=== PATIENT | female | born 1960 | race Caucasian/White ===

== ENCOUNTER 2017-05-21 08:20 | Emergency (ER) | payer BC ==
--- NOTE | 2017-05-21 08:42 | ED ---
General Adult HPI - General Chief complaint: Head Injury Stated complaint: Fell/head injury Time Seen by Provider: 05/21/17 08:36 Source: patient, RN notes reviewed Mode of arrival: ambulatory Limitations: no limitations - History of Present Illness Initial comments: 56-year-old male presents to the emergency Department chief complaint of minor headache. Patient states 2 weeks ago she fell backwards and she hit her head. Patient states it was in the back of her head. Patient states she has not lost consciousness or not. Patient states in general is on and off had pressure sometimes she'll have a little bit of abnormal vision and then it will just go away. Patient states she's had it on and off. Patient states she went to her doctor yesterday and he wanted a CAT scan but they were unable to schedule it slightly told her to go to the ER. Patient states that is why she is here today. Patient states her symptoms aren't getting any worse. Patient denies any numbness tingling or weakness with this. Patient states that she is not currently having any other problems. Patient denies any recent fever, chills, shortness of breath, chest pain, back pain, abdominal pain, nausea vomiting, numbness or tingling, dysuria or hematuria, constipation or diarrhea, or any other current symptoms. - Related Data Home Medications Medication Instructions Recorded Confirmed No Known Home Medications [No 05/21/17 05/21/17 Known Home Medications] Allergies Allergy/AdvReac Type Severity Reaction Status Date / Time minocycline Allergy Swelling Verified 05/21/17 08:55 Review of Systems ROS Statement: Those systems with pertinent positive or pertinent negative responses have been documented in the HPI. ROS Other: All systems not noted in ROS Statement are negative. Past Medical History Past Medical History: No Reported History History of Any Multi-Drug Resistant Organisms: None Reported Past Surgical History: Hysterectomy, Tonsillectomy Past Psychological History: No Psychological Hx Reported Smoking Status: Never smoker Past Alcohol Use History: Occasional Past Drug Use History: None Reported General Exam Limitations: no limitations General appearance: alert, in no apparent distress Head exam: Present: atraumatic, normocephalic, normal inspection Eye exam: Present: normal appearance, PERRL, EOMI. Absent: scleral icterus, conjunctival injection, periorbital swelling ENT exam: Present: normal exam, mucous membranes moist Neck exam: Present: normal inspection. Absent: tenderness, meningismus, lymphadenopathy Respiratory exam: Present: normal lung sounds bilaterally. Absent: respiratory distress, wheezes, rales, rhonchi, stridor Cardiovascular Exam: Present: regular rate, normal rhythm, normal heart sounds. Absent: systolic murmur, diastolic murmur, rubs, gallop, clicks Extremities exam: Present: normal inspection, full ROM, normal capillary refill. Absent: tenderness, pedal edema, joint swelling, calf tenderness Back exam: Present: normal inspection Neurological exam: Present: alert, oriented X3, CN II-XII intact, reflexes normal. Absent: motor sensory deficit Psychiatric exam: Present: normal affect, normal mood Skin exam: Present: warm, dry, intact, normal color. Absent: rash Course Vital Signs 05/21/17 08:31 Temperature 99.2 F Pulse Rate 84 Respiratory 18 Rate Blood Pressure 121/85 O2 Sat by Pulse 95 Oximetry Medical Decision Making - Medical Decision Making 56-year-old female presents with head injury. This time patient went to CAT scan does not show an acute process. This time we discussed patient is most likely suffering from a concussion. We discussed care follow-up return parameters and all questions. She stated that she understood and she is in agreement with this plan. This time patient will be discharged home. - Radiology Data Radiology results: report reviewed, image reviewed Disposition Clinical Impression: Concussion Disposition: HOME SELF-CARE Condition: Stable Instructions: Concussion (ED) Additional Instructions: Please use medication as discussed. Please follow up with family doctor if symptoms have not improved over the next two days. Please return to the emergency room if your symptoms increase or worsen or for any other concerns. Referrals: Janine Logan III, MD [Primary Care Provider] - 1-2 days Time of Disposition: 09:14
--- NOTE | 2017-05-21 09:08 | CT ---
EXAMINATION TYPE: CT brain wo con DATE OF EXAM: 05/21/2017 COMPARISON: 03/16/2011 HISTORY: Fall/head injury [address] DLP: 1047.10 mGycm Automated exposure control for dose reduction was used. FINDINGS: Ventricles of normal size. There is no mass effect nor midline shift. There is no sign of intracrania l hemorrhage. Calvarium is intact. There is incomplete pneumatization of the right mastoid air cells. IMPRESSION: NEGATIVE CT SCAN OF THE BRAIN. NO CHANGE COMPARED TO MR SCAN OF 03/16/2011.
[2017-05-21 09:22] VITALS: BP 115/66; PULSE 79; RESP 14; TEMP 98.8
== END 2017-05-21 09:39 | disposition home or self-care (01) ==
LOC: EC 08:20
DX: S06.0X0A Concussion without loss of consciousness, initial encounter (principal); Z88.1 Allergy status to other antibiotic agents; W08.XXXA Fall from other furniture, initial encounter; W22.09XA Striking against other stationary object, initial encounter
CPT/HCPCS: 70450; 99283

== ENCOUNTER → 2018-05-01 | Outpatient (CLI) | payer BC ==
--- NOTE | 2018-05-01 08:02 | US ---
EXAMINATION TYPE: US abdomen complete DATE OF EXAM: 05/01/2018 COMPARISON: NONE CLINICAL HISTORY: R10.11 right upper quadrant pain. Pt states on going RUQ pain EXAM MEASUREMENTS: Liver Length: 13.3 cm Gallbladder Wall: 0.2 cm CBD: 0.4 cm Spleen: 9.3 cm Right Kidney: 9.8 x 4.0 x 4.7 cm Left Kidney: 9.5 x 5.3 x 4.9 cm Pancreas: wnl, tail obscured by overlying bowel gas Liver: Heterogeneous, otherwise appeared wnl Gallbladder: wnl Evidence for sonographic Moody's sign: No CBD: wnl Spleen: wnl Right Kidney: wnl Left Kidney: wnl Upper IVC: wnl Abd Aorta: wnl No abnormality visualized to account for pt's symptoms The visualized liver is slightly heterogeneous. The intrahepatic portion of the IVC and proximal abd ominal aorta are within normal limits. There is no evidence of cholelithiasis. Common bile duct is unremarkable. The visualized portions of the pancreas are homogenous. The spleen is unremarkable. Kidneys are symmetric and free of hydronephrosis. No renal lesions are seen. IMPRESSION: No suspicious finding is seen to account for patient's symptoms.
== END | disposition home or self-care (01) ==
LOC: RADUSWWP 07:22
PROVIDERS: ATTEND Family Medicine
DX: R10.11 Right upper quadrant pain (principal)
CPT/HCPCS: 76700

== ENCOUNTER → 2018-05-07 | Outpatient (CLI) | payer BC ==
--- NOTE | 2018-05-07 17:37 | NM ---
EXAMINATION TYPE: NM hepatobiliary w EF DATE OF EXAM: 05/07/2018 COMPARISON: NONE HISTORY: Abdominal pain TECHNIQUE: After the intravenous administration of 5 mCi Tc 99m Mebrofenin hepatobiliary scintigraphy is performed. Immediate images post injection. FINDINGS: There is satisfactory initial accumulation of tracer by the liver. The gallbladder is visualized wit hin 10 minutes. The small bowel activity is noted within 45 minutes. At one hour 8 ounces of oral e nsure plus is given to mimic CCK and gallbladder ejection fraction is calculated at 91 %, in the norm al range. Therefore there is no scintigraphic evidence of cystic or common bile duct obstruction to suggest acute cholecystitis or gallbladder dyskinesia. IMPRESSION: Exam is within normal limits.
== END | disposition home or self-care (01) ==
LOC: RADNMMAIN 14:48
PROVIDERS: ATTEND Family Medicine
DX: R10.11 Right upper quadrant pain (principal)
CPT/HCPCS: 78226; A9537

== ENCOUNTER → 2022-03-13 | Outpatient (CLI) | payer OTHER ==
--- NOTE | 2022-03-14 12:35 | MM ---
Reason for exam: screening (asymptomatic). Last mammogram was performed 4 years and 11 months ago. History: Benign right mammotome panel of the right breast, July 29, 2006. Took hormonal contraceptives for 1 year beginning at age 18. Physical Findings: A clinical breast exam by your physician is recommended on an annual basis and results should be correlated with mammographic findings. MG 3D Screening Mammo W/Cad Bilateral CC and MLO view(s) were taken. Prior study comparison: April 03, 2017, mammogram, performed at [facility]. April 26, 2015, mammogram, performed at [facility]. March 16, 2013, mammogram, performed at [facility]. The breast tissue is heterogeneously dense. This may lower the sensitivity of mammography. No significant changes when compared with prior studies. ASSESSMENT: Benign, BI-RAD 2 RECOMMENDATION: Routine screening mammogram of both breasts in 1 year.
== END | disposition home or self-care (01) ==
LOC: RADMAMWWP 07:43
PROVIDERS: ATTEND Family Medicine
DX: Z12.31 Encounter for screening mammogram for malignant neoplasm of breast (principal)
CPT/HCPCS: 77063; 77067

== ENCOUNTER 2023-03-04 09:44 | Observation (INO) | payer OTHER ==
[2023-03-04] MEDS ORDERED: NITROGLYCERIN OINT 1 INCH/GM PACKET TOPICAL STA (11:09)
[2023-03-04] MEDS ORDERED: ASPIRIN 81 MG PO STA (11:09)
--- NOTE | 2023-03-04 11:11 | ED ---
General Adult HPI - General Chief complaint: Chest Pain Stated complaint: chest pain, lt side numbness Time Seen by Provider: 03/04/23 10:35 Source: patient, RN notes reviewed Mode of arrival: ambulatory Limitations: no limitations - History of Present Illness Initial comments: Patient is a pleasant 62-year-old female presenting to the emergency department with concerns with chest discomfort. Onset of symptoms was a couple of days ago. Patient also has some associated nausea and paresthesias of the left arm. Also some mild paresthesia left upper leg. Patient does admit to having some increased stress recently. No dyspnea. No diaphoresis. No history of similar symptoms previously. Discomfort is described as pressure and rated 3/10. No ra diation. - Related Data Home Medications Medication Instructions Recorded Confirmed No Known Home Medications 05/21/17 05/21/17 Allergies Allergy/AdvReac Type Severity Reaction Status Date / Time minocycline Allergy Swelling Verified 05/21/17 08:55 tetracycline Allergy Anaphylaxis Verified 03/04/23 09:54 Review of Systems ROS Statement: Those systems with pertinent positive or pertinent negative responses have been documented in the HPI. ROS Other: All systems not noted in ROS Statement are negative. Constitutional: Denies: fever Eyes: Denies: eye pain ENT: Denies: ear pain Respiratory: Denies: cough, dyspnea Cardiovascular: Reports: as per HPI, chest pain Endocrine: Denies: fatigue Gastrointestinal: Reports: nausea. Denies: vomiting Genitourinary: Denies: dysuria Musculoskeletal: Denies: back pain Skin: Denies: rash Neurological: Reports: as per HPI. Denies: headache, weakness, confusion Past Medical History Past Medical History: No Reported History History of Any Multi-Drug Resistant Organisms: None Reported Past Surgical History: Hysterectomy, Tonsillectomy Past Psychological History: No Psychological Hx Reported Smoking Status: Never smoker Past Alcohol Use History: Occasional Past Drug Use History: None Reported General Exam Limitations: no limitations General appearance: alert, in no apparent distress Head exam: Present: atraumatic, normocephalic Eye exam: Present: normal appearance, PERRL, EOMI ENT exam: Present: normal oropharynx Neck exam: Present: normal inspection Respiratory exam: Present: normal lung sounds bilaterally Cardiovascular Exam: Present: regular rate, normal rhythm Expanded Peripheral pulses: 2+: Radial (R), Radial (L), Dorsalis Pedis (R), Dorsalis Pedis (L) GI/Abdominal exam: Present: soft. Absent: tenderness Extremities exam: Present: normal inspection. Absent: pedal edema, calf tenderness Neurological exam: Present: alert Psychiatric exam: Present: normal affect, normal mood Skin exam: Present: normal color Course Vital Signs 03/04/23 09:52 Temperature 97.9 F Pulse Rate 82 Respiratory 20 Rate Blood Pressure 174/91 O2 Sat by Pulse 99 Oximetry EKG Findings - EKG Results: EKG: interpreted by ERMD, sinus rhythm, normal axis, normal QRS, normal ST/T Medical Decision Making - Medical Decision Making Was pt. sent in by a medical professional or institution (, PA, PRODUCTION MANAGER, urgent care, hospital, or usp...) When possible be specific @ -No Did you speak to anyone other than the patient for history (EMS, parent, family, police, friend...)? What history was obtained from this source @ -No Did you review nursing and triage notes (agree or disagree)? Why? @ -I reviewed and agree with nursing and triage notes Were old charts reviewed (outside hosp., previous admission, EMS record, old EKG, old radiological studies, urgent care reports/EKG's, usp records)? Report findings @ -No old charts were reviewed Differential Diagnosis (chest pain, altered mental status, abdominal pain women, abdominal pain men, vaginal bleeding, weakness, fever, dyspnea, syncope, headache, dizziness, GI bleed, back pain, seizure, CVA, palpatations, mental health)? @ -Differential Chest Pain: Stable Angina, Unstable Angina, STEMI, NSTEMI Aortic Dissection, Pneumothorax, Musculoskeletal, Esophageal Spasm GERD, Cholecystitis, Pancreatitis, Zoster, this is not meant to be an all-inclusive list. EKG interpreted by me (3pts min.). @ -As above X-rays interpreted by me (1pt min.). @ -Chest x-ray shows no acute process CT interpreted by me (1pt min.). @ -None done U/S interpreted by me (1pt. min.). @ -None done What testing was considered but not performed or refused? (CT, X-rays, U/S, la bs)? Why? @ -None What meds were considered but not given or refused? Why? @ -None Did you discuss the management of the patient with other professionals (professionals i.e. , PA, PRODUCTION MANAGER, lab, RT, psych nurse, social work nurse, otr flatbed company truck driver, teacher, security control room officer, rifle case repairer)? Give summary @ -Case was discussed with Dr. Amin, who will admit coming hospital call Was smoking cessation discussed for >3mins.? @ -No Was critical care preformed (if so, how long)? @ -No Were there social determinants of health that impacted care today? How? (Homelessness, low income, unemployed, alcoholism, drug addiction, trans portation, low edu. Level, literacy, decrease access to med. care, intermediate, rehab)? @ -No Was there de-escalation of care discussed even if they declined (Discuss DNR or withdrawal of care, Hospice)? DNR status @ -No What co-morbidities impacted this encounter? (DM, HTN, Smoking, COPD, CAD, Cancer, CVA, ARF, Chemo, Hep., AIDS, mental health diagnosis, sleep apnea, morbid obesity)? @ -None Was patient admitted / discharged? Hospital course, mention meds given and route, prescriptions, significant lab abnormalities, going to OR and other pertinent info. @ -Patient reevaluated and resting comfortably in bed. Patient is updated on results and plan. Patient will be admitted for further cardiac evaluation Undiagnosed new problem with uncertain prognosis? @ -No Drug Therapy requiring intensive monitoring for toxicity (Heparin, Nitro, Insulin, Cardizem)? @ -No Were any procedures done? @ -No Diagnosis/symptom? @ -Chest pain Acute, or Chronic, or Acute on Chronic? @ -Acute Uncomplicated (without systemic symptoms) or Complicated (systemic symptoms)? @ -default Side effects of treatment? @ -No Exacerbation, Progression, or Severe Exacerbation? @ -No Poses a threat to life or bodily function? How? (Chest pain, [place], [place], pneumonia, PE, COPD, DKA, ARF, appy, cholecystitis, CVA, Diverticulitis, Homicidal, Suicidal, threat to staff... and all critical care pts) @ -No - Lab Data Result diagrams: 03/04/23 10:52 03/04/23 10:52 Lab Results 03/04/23 03/04/23 03/04/23 Range/Units 10:52 10:52 10:52 WBC 6.0 (3.8-10.6) k/uL RBC 4.52 (3.80-5.40) m/uL Hgb 14.0 (11.4-16.0) gm/dL Hct 39.4 (34.0-46.0) % MCV 87.2 (80.0-100.0) fL MCH 30.9 (25.0-35.0) pg MCHC 35.5 (31.0-37.0) g/dL RDW 13.4 (11.5-15.5) % Plt Count 231 (150-450) k/uL MPV 7.9 Neutrophils % 67 % Lymphocytes % 25 % Monocytes % 4 % Eosinophils % 2 % Basophils % 1 % Neutrophils # 4.1 (1.3-7.7) k/uL Lymphocytes # 1.5 (1.0-4.8) k/uL Monocytes # 0.2 (0-1.0) k/uL Eosinophils # 0.1 (0-0.7) k/uL Basophils # 0.0 (0-0.2) k/uL PT (9.0-12.0) sec INR (<1.2) APTT (22.0-30.0) sec Sodium 138 (137-145) mmol/L Potassium 4.6 (3.5-5.1) mmol/L Chloride 106 (98-107) mmol/L Carbon Dioxide 24 (22-30) mmol/L Anion Gap 8 mmol/L BUN 12 (7-17) mg/dL Creatinine 0.51 L (0.52-1.04) mg/dL Est GFR (CKD-EPI)AfAm >90 (>60 ml/min/1.73 sqM) Est GFR (CKD-EPI)NonAf >90 (>60 ml/min/1.73 sqM) Glucose 99 (74-99) mg/dL Calcium 9.4 (8.4-10.2) mg/dL Magnesium 2.3 (1.6-2.3) mg/dL Total Bilirubin 0.6 (0.2-1.3) mg/dL AST 37 H (14-36) U/L ALT 31 (4-34) U/L Alkaline Phosphatase 79 (38-126) U/L Troponin I 0.021 (0.000-0.034) ng/mL Total Protein 7.9 (6.3-8.2) g/dL Albumin 4.6 (3.5-5.0) g/dL 03/04/23 Range/Units 11:17 WBC (3.8-10.6) k/uL RBC (3.80-5.40) m/uL Hgb (11.4-16.0) gm/dL Hct (34.0-46.0) % MCV (80.0-100.0) fL MCH (25.0-35.0) pg MCHC (31.0-37.0) g/dL RDW (11.5-15.5) % Plt Count (150-450) k/uL MPV Neutrophils % % Lymphocytes % % Monocytes % % Eosinophils % % Basophils % % Neutrophils # (1.3-7.7) k/uL Lymphocytes # (1.0-4.8) k/uL Monocytes # (0-1.0) k/uL Eosinophils # (0-0.7) k/uL Basophils # (0-0.2) k/uL PT 9.8 (9.0-12.0) sec INR 0.9 (<1.2) APTT 21.8 L (22.0-30.0) sec Sodium (137-145) mmol/L Potassium (3.5-5.1) mmol/L Chloride (98-107) mmol/L Carbon Dioxide (22-30) mmol/L Anion Gap mmol/L BUN (7-17) mg/dL Creatinine (0.52-1.04) mg/dL Est GFR (CKD-EPI)AfAm (>60 ml/min/1.73 sqM) Est GFR (CKD-EPI)NonAf (>60 ml/min/1.73 sqM) Glucose (74-99) mg/dL Calcium (8.4-10.2) mg/dL Magnesium (1.6-2.3) mg/dL Total Bilirubin (0.2-1.3) mg/dL AST (14-36) U/L ALT (4-34) U/L Alkaline Phosphatase (38-126) U/L Troponin I (0.000-0.034) ng/mL Total Protein (6.3-8.2) g/dL Albumin (3.5-5.0) g/dL Disposition Clinical Impression: Chest pain Disposition: ADMITTED IP TO THIS HOSP Is patient prescribed a controlled substance at d/c from ED?: No Referrals: None,Stated [Primary Care Provider] - 1-2 days Time of Disposition: 12:24
[2023-03-04 11:17] LABS: Basophils % (A) 1 %; Eosinophils # (A) 0.1 k/uL (0-0.7); Eosinophils % (A) 2 %; HCT 39.4 % (34.0-46.0); Lymphocytes # (A) 1.5 k/uL (1.0-4.8); Lymphocytes % (A) 25 %; MCH 30.9 pg (25.0-35.0); MCHC 35.5 g/dL (31.0-37.0); MCV 87.2 fL (80.0-100.0); Mean Platelet Volume 7.9; Monocytes # (A) 0.2 k/uL (0-1.0); Monocytes % (A) 4 %; Neutrophils # (A) 4.1 k/uL (1.3-7.7); Neutrophils % (A) 67 %; Platelet Count 231 k/uL (150-450); RBC 4.52 m/uL (3.80-5.40); RDW 13.4 % (11.5-15.5)
--- NOTE | 2023-03-04 11:29 | XR ---
EXAMINATION TYPE: XR chest 2V DATE OF EXAM: 03/04/2023 COMPARISON: NONE HISTORY: Shortness of breath TECHNIQUE: Frontal and lateral views of the chest are obtained. FINDINGS: Scattered senescent parenchymal changes noted. Hyperinflation compatible with COPD. No evidence for infiltrate. No evidence for atelectasis. Heart size is stable. Mediastinal structures are stable and grossly unremarkable. No evidence for hilar prominence. Degenerative changes dorsal spine. IMPRESSION: 1. No evidence for acute pulmonary disease.
[2023-03-04 11:39] LABS: ALT 31 U/L (4-34); African American GFR (CKD) >90 (>60 ml/min/1.73 sqM); Albumin 4.6 g/dL (3.5-5.0); Anion Gap 8 mmol/L; Blood Urea Nitrogen 12 mg/dL (7-17); Calcium 9.4 mg/dL (8.4-10.2); Carbon Dioxide 24 mmol/L (22-30); Chloride 106 mmol/L (98-107); Glucose 99 mg/dL (74-99); Non-African American GFR(CKD) >90 (>60 ml/min/1.73 sqM); Sodium 138 mmol/L (137-145); Total Bilirubin 0.6 mg/dL (0.2-1.3); Total Protein 7.9 g/dL (6.3-8.2)
[2023-03-04 11:47] LABS: INR 0.9 (<1.2); Partial Thromboplastin Time 21.8 sec (22.0-30.0); Prothrombin Time 9.8 sec (9.0-12.0)
[2023-03-04 11:59] LABS: AST 37 U/L (14-36); Alkaline Phosphatase 79 U/L (38-126); Magnesium 2.3 mg/dL (1.6-2.3); Potassium 4.6 mmol/L (3.5-5.1)
[2023-03-04] MEDS ORDERED: NITROGLYCERIN SL TABS 0.4 MG TAB SUBLINGUAL PRN (12:24)
[2023-03-04] MEDS: NITROGLYCERIN OINT 1 INCH/GM PACKET TOPICAL SCH (19:36)
[2023-03-05] MEDS: NITROGLYCERIN OINT 1 INCH/GM PACKET TOPICAL SCH ×2 (00:59→05:32)
[2023-03-05 08:08] VITALS: RESP 16
[2023-03-05] MEDS ORDERED: ASPIRIN 325 MG TAB PO SCH (09:00)
--- NOTE | 2023-03-05 11:18 | P.CRDCN ---
History of Present Illness Consult date: 03/05/23 Consult reason: chest pain History of present illness: History of present illness: This is a 62-year-old female with no previous cardiac history, and no previous cardiac testing, does not follow with a ammunition specialist. Patient has no significant past medical history. We have been asked to evaluate the patient for chest pain. Patient states that she has had left arm numbness for the last couple of days and then developed left leg tingling. Yesterday she was having chest pressure developed yesterday while she was working on a computer. She works from home. She also developed nausea and felt that this was related to stress. She is usually very active and exercises at the gym every day. She has no history of smoking, she drinks alcohol occasionally. No illicit drug use. And she denies any family history of heart disease. EKG normal sinus rhythm with no acute ST changes Chest x-ray: No acute findings CBC within normal limits. D-dimer 0.51. Electrolytes normal. BUN 12 and creatinine 0.51. Troponins negative 3. AST 37 otherwise liver function tests are normal. Magnesium 2.3. Home cardiac medications: None Review Of Systems: At the time of my evaluation: Constitutional: No fever, no chills. No weakness, fatigue or lethargy. EENT: No headache. No dizziness. Lungs: No shortness of breath, cough, no sputum production. No wheezing. Cardiovascular: No chest pain, no lower extremity edema. No palpitations. No paroxysmal nocturnal dyspnea. No orthopnea. No lightheadedness or dizziness. No syncopal episodes. Abdominal: No abdominal pain. No nausea, vomiting. No diarrhea. No constipation. No bloody or tarry stools. Genitourinary: No dysuria.. No urinary retention. Musculoskeletal: No myalgias. No muscle weakness, no frequent falls. No back pain. No neck pain. Integumentary: No wounds. No rash. No unusual bruising. Neurologic: No aphasia. No facial droop. No change in mentation. No head injury. No headache. Physical examination: Gen: This is a thin 62-year-old female. She is in no acute distress VS: reviewed HEENT: Head is atraumatic, normocephalic. Pupils equal, round. Sclerae is anicteric. NECK: Supple. No JVD. . LUNGS: Clear to auscultation. No wheezes or rhonchi. No intercostal retractions. HEART: Regular rate and rhythm. No murmur. ABDOMEN: Soft No tenderness. EXTREMITIES: No pedal edema. No calf tenderness. NEUROLOGICAL: Patient is awake, alert and oriented x3. Assessment: Chest pain, acute coronary syndrome ruled out Plan: Obtain stress echo cardiogram Obtain 2-D echocardiogram and Doppler study to assess cardiac structure and function If stress echocardiogram and echocardiogram are unremarkable, patient is cleared for discharge home from cardiology. Thank you kindly for this consultation. Nurse practitioner note has been reviewed, I agree with documented findings and plan of care. Patient was seen and examined. Past Medical History Past Medical History: No Reported History History of Any Multi-Drug Resistant Organisms: None Reported Past Surgical History: Hysterectomy, Tonsillectomy Past Psychological History: No Psychological Hx Reported Smoking Status: Never smoker Past Alcohol Use History: Occasional Past Drug Use History: None Reported Medications and Allergies Home Medications Medication Instructions Recorded Confirmed Type No Known Home Medications 05/21/17 03/04/23 History Allergies Allergy/AdvReac Type Severity Reaction Status Date / Time minocycline Allergy Swelling Verified 03/04/23 12:15 tetracycline Allergy Anaphylaxis Verified 03/04/23 12:15 Physical Exam Vitals: Vital Signs Temp Pulse Pulse Resp BP BP Pulse Ox 03/05/23 01:33 97.7 F 80 18 121/83 99 03/04/23 20:00 76 15 03/04/23 19:24 97.0 F L 97 20 144/90 96 03/04/23 18:34 98.2 F 76 15 133/82 98 03/04/23 18:00 89 16 114/68 97 03/04/23 17:00 88 18 132/85 97 03/04/23 16:00 101 H 16 130/79 96 03/04/23 15:00 72 17 126/85 96 03/04/23 14:30 72 16 132/82 97 03/04/23 13:30 68 15 148/97 96 03/04/23 13:00 80 15 155/102 96 03/04/23 12:30 76 15 154/100 97 03/04/23 12:00 77 18 160/89 99 03/04/23 11:30 76 22 154/94 99 03/04/23 11:00 71 18 166/91 99 03/04/23 09:52 97.9 F 82 20 174/91 99 Intake and Output 03/04/23 03/05/23 03/05/23 22:59 06:59 14:59 Intake Total 450 Balance 450 Intake: Oral 450 Other: # Voids 1 2 Weight 63.503 kg Results 03/04/23 10:52 03/04/23 10:52 Cardiac Enzymes 03/04/23 03/04/23 03/04/23 Range/Units 10:52 10:52 13:10 AST 37 H (14-36) U/L Troponin I 0.021 <0.012 (0.000-0.034) ng/mL 03/04/23 Range/Units 15:35 AST (14-36) U/L Troponin I <0.012 (0.000-0.034) ng/mL Coagulation 03/04/23 Range/Units 11:17 PT 9.8 (9.0-12.0) sec APTT 21.8 L (22.0-30.0) sec CBC 03/04/23 Range/Units 10:52 WBC 6.0 (3.8-10.6) k/uL RBC 4.52 (3.80-5.40) m/uL Hgb 14.0 (11.4-16.0) gm/dL Hct 39.4 (34.0-46.0) % Plt Count 231 (150-450) k/uL Comprehensive Metabolic Panel 03/04/23 Range/Units 10:52 Sodium 138 (137-145) mmol/L Potassium 4.6 (3.5-5.1) mmol/L Chloride 106 (98-107) mmol/L Carbon Dioxide 24 (22-30) mmol/L BUN 12 (7-17) mg/dL Creatinine 0.51 L (0.52-1.04) mg/dL Glucose 99 (74-99) mg/dL Calcium 9.4 (8.4-10.2) mg/dL AST 37 H (14-36) U/L ALT 31 (4-34) U/L Alkaline Phosphatase 79 (38-126) U/L Total Protein 7.9 (6.3-8.2) g/dL Albumin 4.6 (3.5-5.0) g/dL Current Medications Generic Name Dose Route Start Last Admin Trade Name Freq PRN Reason Stop Dose Admin Aspirin 325 mg 03/05/23 09:00 Aspirin 325 Mg Tab PO DAILY BLACK Nitroglycerin 0.4 mg 03/04/23 12:24 Nitroglycerin Sl Tabs 0.4 Mg Tab SUBLINGUAL Q5M PRN Chest Pain Nitroglycerin 1 inch 03/04/23 18:00 03/05/23 05:32 Nitroglycerin Oint 1 Inch/Gm Packet TOPICAL Not Given Q6HR BLACK Intake and Output 03/04/23 03/05/23 03/05/23 22:59 06:59 14:59 Intake Total 450 Balance 450 Intake: Oral 450 Other: # Voids 1 2 Weight 63.503 kg 03/04/23 10:52 03/04/23 10:52
--- NOTE | 2023-03-05 11:54 | CA ---
Stress Echo Report Ludy Rojas Age: 62 Gender: F : 1960 Exam Date: 03/05/2023 11:00 Exam Location: [place] [facility] Ht (in): 65 Wt (lb): 140 Ordering Physician: Ashlyn Rodriguez Referring Physician: Jennifer SCOTT [employer] Certified Internetwork Expert: Angelita Rowland RDCS Technologist Procedure CPT: Indication: CP ICD-9 Codes: Rhythm: Patient History: Atypical angina, Hypertension Cardiac Medications: Medications in past 24 hours: Contrast: Stress Results Protocol: Zach Total dose(mL): Exercise Duration (min:sec): 7:[address] Depression (mm): Angina Score: Aguila Score: METS: 8.5 Resting HR: 102 Resting BP: 147 / 81 Peak HR: 156 Peak BP: 161 / 83 Max Predicted HR: 157 99 % Max Predicted HR Target HR: 133 Double Product: 29593 Stress Summary: The patient's target heart rate was achieved BP Response: Normal Reason for Termination: Reached target heart rate or work-load Cardiac Symptoms: Test terminated after reaching target heart rate (85% max predicted) ECG Analysis Resting ECG: Normal sinus rhythm normal lites normal intervals Stress ECG: No ST segment depression patient exercised for 7 minutes on Zach protocol achieving 8 met Arrhythmia: Echo Analysis Resting Echo: Normal left ventricular size wall motion systolic function Peak Echo Analysis: Normal hyperdynamic response of all the myocardium noted MEASUREMENTS (Male/Female) Normal Values CONCLUSIONS Average exercise tolerance Negative stress test by EKG criteria Negative stress echo Dr. Fox Martinez MD (Electronically Signed) Final Date: 05 March 2023 11:53
--- NOTE | 2023-03-05 12:14 | CA ---
Transthoracic Echo Report Name: Ludy Rojas Age: 62 Gender: F : 1960 Exam Date: 03/05/2023 09:05 Exam Location: [place] [facility] Ht (in): 65 Wt (lb): 140 Ordering Physician: Ashlyn Rodriguez Attending/Referring Phys: [id number], Jennifer Health And Safety Director Angelita Rowland RDCS Procedure CPT: Indications: LVF Cardiac Hx: Hypertension. Technical Quality: Fair Contrast 1: Total Dose (mL): Contrast 2: Total Dose (mL): MEASUREMENTS (Male / Female) Normal Values 2D ECHO LV Diastolic Diameter PLAX 3.9 cm 4.2 - 5.9 / 3.9 - 5.3 cm LV Systolic Diameter PLAX 2.4 cm IVS Diastolic Thickness 0.9 cm 0.6 - 1.0 / 0.6 - 0.9 cm LVPW Diastolic Thickness 1.0 cm 0.6 - 1.0 / 0.6 - 0.9 cm LV Relative Wall Thickness 0.5 RV Internal Dim ED PLAX 2.5 cm LA Volume 47.5 cm??? 18 - 58 / 22 - 52 cm??? M-MODE Aortic Root Diameter MM 2.4 cm LA Systolic Diameter MM 2.8 cm LA Ao Ratio MM 1.1 DOPPLER AV Peak Velocity 122.5 cm/s AV Peak Gradient 6.0 mmHg AV Mean Velocity 87.7 cm/s AV Mean Gradient 3.3 mmHg AV Velocity Time Integral 26.4 cm LVOT Peak Velocity 106.4 cm/s LVOT Peak Gradient 4.5 mmHg MV Area PHT 3.7 cm??? Mitral E Point Velocity 57.6 cm/s Mitral A Point Velocity 76.8 cm/s Mitral E to A Ratio 0.7 MV Deceleration Time 204.2 ms MV E' Velocity 6.1 cm/s Mitral E to MV E' Ratio 9.5 TR Peak Velocity 214.9 cm/s TR Peak Gradient 18.5 mmHg Right Ventricular Systolic Press 23.5 mmHg FINDINGS Left Ventricle Normal left ventricular size, wall thickness, systolic function with no obvious regional wall motion abnormalities. Normal left ventricular diastolic filling pattern for age. The ejection fraction is visually estimated at 55-60 %. Right Ventricle The right ventricle is normal in size and function. Right ventricular systolic pressure within normal limits. Right Atrium The right atrium is normal in size. Left Atrium The left atrium is normal in size. Mitral Valve Structurally normal mitral valve without significant stenosis or prolapse. There is trace mitral regurgitation. Aortic Valve Structurally normal aortic valve without significant sclerosis or stenosis. There is no aortic regurgitation. Tricuspid Valve Structurally normal tricuspid valve without significant stenosis. Pulmonary artery systolic pressure is normal. Mild tricuspid regurgitation. Pulmonic Valve Structurally normal pulmonic valve without significant stenosis. There is no pulmonic regurgitation. Pericardium Normal pericardium without effusion. Aorta Normal aortic root dimension. CONCLUSIONS Normal LV systolic function Previewed by: Dr. Fox Martinez MD (Electronically Signed) Final Date: 05 March 2023 12:13
[2023-03-05 14:05] VITALS: BP 136/82; PULSE 88; TEMP 98
--- NOTE | 2023-03-05 15:01 | HP ---
HISTORY AND PHYSICAL HISTORY OF PRESENT ILLNESS: A 62-year-old white female came to emergency room with chest discomfort, a couple of days ago, associated with nausea upper neck. She says she was up cleaning the garage. She thought her pain was relating to cleaning out her garage and her barn. She has had no similar symptoms. Pressure 3/10, nonradiating. . She has a lot of stressors in her life she says. ALLERGIES: Negative. PAST MEDICAL HISTORY: Negative. PAST SURGICAL HISTORY: Hysterectomy and tonsillectomy. REVIEW OF SYSTEMS: A 14-point review of systems is negative except for as mentioned in HPI. PHYSICAL EXAMINATION: CARDIOVASCULAR: S1 and S2. LUNGS: Clear. GI: Soft. HEMATOLOGY: Negative Homans. PSYCHIATRIC: Fair mood and affect. NEUROLOGIC: Alert and oriented x3. MUSCULOSKELETAL: Nontender cervical spine. VITAL SIGNS: Temperature 97.9, pulse 82, respiratory rate 18 to 20, blood pressure 170s/90s. EKG, sinus rhythm. Atypical chest pain. Negative CPKs, MBs, and troponins x3. D- dimer is negative. Chest x-ray is negative. Suspect she has some anxiety-related chest pain or pain related to her breathing . We will clear her for discharge once Cardiology clears her in the morning. MMODL / IJN: [id number] /
[2023-03-05 16:36] LABS: Chol/HDL Ratio 4.08 Ratio; LDL Cholesterol,Calculated 147.8 mg/dL (0.0-131.0)
== END 2023-03-05 14:05 ==
LOC: EC 09:44 → 6NMEDSUR 12:25
PROVIDERS: ADMIT Family Medicine; ATTEND Family Medicine
DX: R07.89 Other chest pain (principal); R20.0 Anesthesia of skin; R20.2 Paresthesia of skin; Z90.710 Acquired absence of both cervix and uterus; Z98.890 Other specified postprocedural states; Z79.82 Long term (current) use of aspirin; Z88.1 Allergy status to other antibiotic agents
CPT/HCPCS: 99285; 36415; 93005; 93306; 93351; 85379; 80061; 80053; 83735; 84484; 85025; 85610; 85730; 71046; G0378 ×2

== ENCOUNTER → 2023-12-20 | Outpatient (CLI) | payer OTHER ==
--- NOTE | 2023-12-24 10:14 | MM ---
Reason for Exam: Screening (asymptomatic). Last mammogram was performed 1 year(s) and 10 month(s) ago. Patient History: Menarche at age 16. First Full-Term at age 22. Hysterectomy at age 39. Hormonal Contraceptives for 1 year from age 18 until age 19. 07/29/2006, Benign Core Biopsy on the right side. Risk Values: Esperanza 5 year model risk: 1.6%. NCI Lifetime model risk: 6.3%. Prior Study Comparison: 04/26/2015 Screening Mammogram, [facility]. 04/03/2017 Screening Mammogram, [facility]. 03/13/2022 Bilateral Screening Mammogram, [facility]. Tissue Density: The breast tissue is heterogeneously dense. This may lower the sensitivity of mammography. Findings: Analyzed By CAD. Distortion at the approximate 12:00 position left breast 5 cm from the nipple. Additional views are recommended. Scattered punctate benign-appearing calcifications seen bilaterally. Overall Assessment: Incomplete: need additional imaging evaluation, BI-RAD 0 Management: Diagnostic Mammogram of the left breast. . Patient should continue monthly self-breast exams. A clinical breast exam by your physician is recommended on an annual basis. This exam should not preclude additional follow-up of suspicious palpable abnormalities. Note on Esperanza scores and lifetime risk: 1. A Esperanza score greater than 3% is considered moderate risk. If this is the case, consider specialist referral to assess eligibility for a risk reducing agent. 2. If overall lifetime risk for the development of breast cancer is 20% or higher, the patient may qualify for future screening with alternating mammogram and breast MRI. Electronically signed and approved by: Carlos Manuel Roy M.D. Radiologis
== END | disposition home or self-care (01) ==
LOC: RADMAMWWP 13:10
PROVIDERS: ATTEND Internal Medicine
DX: Z12.31 Encounter for screening mammogram for malignant neoplasm of breast (principal)
CPT/HCPCS: 77063; 77067

== ENCOUNTER → 2023-12-25 | Outpatient (CLI) | payer OTHER ==
--- NOTE | 2023-12-25 08:04 | MM ---
Reason for Exam: Additional evaluation requested from abnormal screening. Last screening mammogram was performed less than 1 month ago. Patient History: Menarche at age 16. First Full-Term at age 22. Hysterectomy at age 39. Patient has history of breast feeding. Hormonal Contraceptives for 1 year from age 18 until age 19. 07/29/2006, Benign Core Biopsy on the right side. Risk Values: Esperanza 5 year model risk: 1.6%. NCI Lifetime model risk: 6.3%. Prior Study Comparison: 04/03/2017 Screening Mammogram, [facility]. 03/13/2022 Bilateral Screening Mammogram, [facility]. 12/20/2023 Bilateral MG 3D screening mammo w/cad, [facility]. Tissue Density: Left: There are scattered fibroglandular densities. Findings: Analyzed By CAD. Area of concern/asymmetry compresses out on spot compression imaging. No suspicious masses, calcifications or distortions. Overall Assessment: Negative, BI-RAD 1 Management: Screening Mammogram of both breasts in 1 year. Results were given to the patient verbally at the time of exam. Patient should continue monthly self-breast exams. A clinical breast exam by your physician is recommended on an annual basis. This exam should not preclude additional follow-up of suspicious palpable abnormalities. Note on Esperanza scores and lifetime risk: 1. A Esperanza score greater than 3% is considered moderate risk. If this is the case, consider specialist referral to assess eligibility for a risk reducing agent. 2. If overall lifetime risk for the development of breast cancer is 20% or higher, the patient may qualify for future screening with alternating mammogram and breast MRI. Electronically signed and approved by: Torres Donovan DO
== END | disposition home or self-care (01) ==
LOC: RADMAMWWP 07:36
PROVIDERS: ATTEND Internal Medicine
DX: R92.322 Mammographic fibroglandular density, left breast (principal)
CPT/HCPCS: 77061; 77065